=== PATIENT | female | born 1955 | race Caucasian/White ===

== ENCOUNTER 2017-07-20 06:00 | Inpatient (IN) | payer OTHER ==
[~2017-07-20 06:00] MED LIST: Acetaminophen 1,000 MG in Premix Bag 1 BAG IV SCH; Famotidine 20 MG/2 ML SDV IVPUSH SCH; Ketorolac 30 MG/ML SDV IVPUSH SCH; Scopolamine 1.5 MG Transdermal Patch TRDERM SCH
--- NOTE | 2017-07-20 07:10 | PCM.PREANE ---
Preanesthetic Assessment - Anesthesia/Transfusion/Family Hx Anesthesia History: Prior Anesthesia Reaction (PONV for days post-op) Other Type of Anesthesia Reaction Comment: states N&V for 2 days post-op Transfusion History: No Prior Transfusion(s) - Review of Systems General: No Symptoms Pulmonary: No Symptoms Cardiovascular: No Symptoms Gastrointestinal: No Symptoms Neurological: No Symptoms Other: Reports: None - Physical Assessment NPO Status Date: 07/19/17 NPO Status Time: 22:00 Height: 5 ft 2 in Weight: 77.111 kg ASA Class: 2 Mental Status: Alert & Oriented x3 Airway Class: Mallampati = 2 Dentition: Reports: Normal Dentition Thyro-Mental Finger Breadths: 3 Mouth Opening Finger Breadths: 3 ROM/Head Extension: Full Lungs: Clear to Auscultation, Normal Respiratory Effort Cardiovascular: Regular Rate, Regular Rhythm - Allergies Allergies/Adverse Reactions: Allergies Allergy/AdvReac Type Severity Reaction Status Date / Time adhesive tape Allergy Rash Verified 07/15/17 14:40 grass pollen Allergy sinus Verified 07/15/17 14:40 infection mold Allergy sinus Verified 07/15/17 14:40 infection dust Allergy sinus Uncoded 03/15/15 10:12 infection - Acknowledgements Anesthesia Type Planned: Spinal Pt an Appropriate Candidate for the Planned Anesthesia: Yes Alternatives and Risks of Anesthesia Discussed w Pt/Guardian: Yes Pt/Guardian Understands and Agrees with Anesthesia Plan: Yes PreAnesthesia Questionnaire HEENT History: Reports: Allergic Rhinitis, Other (See Below) Other HEENT History: wears glasses, has partial denture (will leave at home) Cardiovascular History: Reports: High Cholesterol, Hypertension, Other (See Below) Other Cardiovascular History: "leaky valve", does not limit daily activity Respiratory History: Reports: None Gastrointestinal History: Reports: GERD, Hemorrhoids Other Gastrointestinal History: occasional heartburn Genitourinary History: Reports: UTI, Recurrent Other Genitourinary History: hx of interstitial cystitis Musculoskeletal History: Reports: Arthritis, Fracture, Other (See Below) Other Musculoskeletal History: hx of fx right shoulder, hx of osteopenia Neurological History: Reports: None Psychiatric History: Reports: None Endocrine/Metabolic History: Reports: Obesity/BMI 30+ Hematologic History: Reports: None Immunologic History: Reports: None Oncologic (Cancer) History: Reports: None Dermatologic History: Reports: None - Infectious Disease History Infectious Disease History: Reports: Chicken Pox, Measles, Mumps, Rubella - Past Surgical History Head Surgeries/Procedures: Reports: None HEENT Surgical History: Reports: Oral Surgery Other HEENT Surgeries/Procedures: wisdom teeth GI Surgical History: Reports: Other (See Below) Other GI Surgeries/Procedures: hemorrhoidectomy Female Surgical History: Reports: Hysterectomy Musculoskeletal Surgical History: Reports: Arthroscopic Knee, Knee Replacement - SUBSTANCE USE Smoking Status *Q: Never Smoker Tobacco Use Within Last Twelve Months: No Second Hand Smoke Exposure: No Days Per Week of Alcohol Use: 0 Recreational Drug Use History: No - HOME MEDS Home Medications: Home Meds Calcium Carbonate [Calcium] 600 mg PO BID 03/15/15 [History] Cholecalciferol (Vitamin D3) [Vitamin D] 5,000 units PO DAILY 03/15/15 [History] Rosuvastatin [Crestor] 20 mg PO DAILY 03/15/15 [History] amLODIPine [Norvasc] 5 mg PO DAILY 03/15/15 [History] Estrogens, Conjugated [Premarin Vaginal Crm] 1 applic VAG ASDIRECTED PRN [History] Fexofenadine [Dior] 30 mg PO DAILY 07/15/17 [History] Fluticasone Furoate [Flonase Sensimist] 2 spray NASBOTH DAILY 07/15/17 [History] Omeprazole 20 mg PO DAILY PRN 07/15/17 [History] Zolpidem [Ambien] 2.5 mg PO BEDTIME PRN 07/15/17 [History] - CURRENT (IN HOUSE) MEDS Current Meds: Current Medications Famotidine (Pepcid) 40 mg IVPUSH ONARRIVE [facility] Acetaminophen 1,000 mg/ Premix 100 mls @ 400 mls/hr IV ONARRIVE [facility] Cefazolin Sodium/Dextrose 1 gm (/ Premix) 50 mls @ 100 mls/hr IV ONCALL [facility] Ropivacaine 49.25 ml/Ketorolac Tromethamine 30 mg/Epinephrine HCl 0.5 mg/ Clonidine HCl 80 mcg/ Sodium Chloride 100 mls @ 50 mls/sec INJECT ASDIRECTED [facility] Lactated Ringer's (Ringers, Lactated) 1,000 mls @ 100 mls/hr IV ASDIRECTED [facility] Tranexamic Acid 4,000 mg/ (Sodium Chloride) 140 mls @ 600 mls/hr IV ASDIRECTED [facility] Ketorolac Tromethamine (Toradol) 30 mg IVPUSH ONARRIVE [facility] Scopolamine (Transderm-Scop) 1.5 mg TRDERM ONARRIVE [facility]
[2017-07-20] MEDS: Lactated Ringers 1,000 ML IV SCH ×2 (07:20→16:51)
[2017-07-20] MEDS ORDERED: Lidocaine 2% 5 ML SDV ONE (07:29)
[2017-07-20] MEDS ORDERED: Midazolam 1 MG/ML 2 ML SDV ONE (07:29)
[2017-07-20] MEDS ORDERED: Propofol 200 MG/20 ML SDV ONE ×2 (07:29→09:00)
[2017-07-20] MEDS ORDERED: ePHEDrine 50 MG/ML SDV ONE (07:30)
[2017-07-20] MEDS ORDERED: Ondansetron 4 MG/2 ML SDV ONE (07:30)
[2017-07-20] MEDS ORDERED: Dexamethasone 4 MG/ML 5 ML MDV ONE (07:43)
[2017-07-20] MEDS ORDERED: Tranexamic Acid 4,000 MG in Sodium Chloride 0.9% 100 ML IV SCH (08:00)
[2017-07-20] MEDS ORDERED: Ropivacaine 49.25 ML, Ketorolac 30 MG, EPINEPHrine 0.5 MG, cloNIDine 80 MCG in Sodium C... INJECT SCH (08:00)
[2017-07-20] MEDS ORDERED: ceFAZolin 1 GM in Premix Bag 1 BAG IV SCH (08:00)
[2017-07-20] MEDS ORDERED: fentaNYL 100 MCG/2 ML SDV IVPUSH PRN (08:58)
[2017-07-20] MEDS ORDERED: diphenhydrAMINE 25 MG Cap PO PRN (09:33)
[2017-07-20] MEDS ORDERED: Bisacodyl 10 MG Supp RECTAL PRN (09:33)
[2017-07-20] MEDS ORDERED: HYDROmorphone/Normal Saline 6 MG/30 ML PCA Vial IV PRN (09:33)
[2017-07-20] MEDS ORDERED: Ondansetron 4 MG/2 ML SDV IV PRN (09:33)
[2017-07-20] MEDS ORDERED: Aluminum Hydroxide/Magnesium Hydroxide/Simethicone Susp 30 ML Cup PO PRN (09:33)
[2017-07-20] MEDS ORDERED: Omeprazole 20 MG Cap.CR PO PRN (09:36)
--- NOTE | 2017-07-20 09:36 | PCM.OPNOTE ---
- General Post-Op/Procedure Note Date of Surgery/Procedure: 07/20/17 Operative Procedure(s): L TKA Post-Op Diagnosis: DJD L knee Anesthesia Technique: Moderate Sedation, Spinal Primary Surgeon: Brittni Cavanaugh Fire Patroller: Beatriz Andrea in mLs: 50 Condition: Good Free Text/Narrative:: tt=31 min #[id number]
--- NOTE | 2017-07-20 10:29 | PCM.POSTAN ---
POST ANESTHESIA ASSESSMENT - MENTAL STATUS Mental Status: Alert, Oriented - RESPIRATORY Respiratory Status: Respiratory Rate WNL, Airway Patent, O2 Saturation Stable - CARDIOVASCULAR CV Status: Pulse Rate WNL, Blood Pressure Stable - GASTROINTESTINAL GI Status: No Symptoms - POST OP HYDRATION Hydration Status: Adequate & Stable
[2017-07-20] MEDS: Ketorolac 30 MG/ML SDV IVPUSH SCH ×2 (12:54→18:35)
--- NOTE | 2017-07-20 13:37 | CR ---
EXAMINATION: Left knee HISTORY: Arthroplasty COMPARISON: 04/01/2017 TECHNIQUE: 2 views FINDINGS/IMPRESSION: Right total knee hardware is demonstrated in good position and alignment. Postop erative soft tissue changes noted.
--- NOTE | 2017-07-20 13:41 | OR ---
SURGEON: Brittni Cavanaugh MD DATE OF PROCEDURE: 07/20/2017 PREOPERATIVE DIAGNOSIS: Degenerative joint disease, left knee, tricompartmental. POSTOPERATIVE DIAGNOSIS: Degenerative joint disease, left knee, tricompartmental. PROCEDURE: Left total knee arthroplasty using patient specific instrumentation. BARREL PAINTER: Beatriz Andrea PA-C ANESTHESIA: Spinal with sedation. ESTIMATED BLOOD LOSS: 50 mL. TOURNIQUET TIME: 31 minutes. COMPLICATIONS: None. DVT PROPHYLAXIS: PAS boot and JOSUE hose to the nonoperative leg. IMPLANTS USED: Hubert Persona femoral component size 6 narrow (LPS), tibial component size E, 12 mm all-polyethylene articular surface, and 35 mm all-polyethylene patella. INTRAOPERATIVE FINDINGS: Showed evidence of tricompartmental grade 4 chondromalacia. Osteophyte formation was also noted. No significant synovitis was found. BRIEF HISTORY: The patient is a 62-year-old female who has had complaint of progressive left knee pain. She was found to have degenerative changes on her x-rays. She had failed conservative treatment. She does have a history of a previous right total knee arthroplasty and has done well. Due to her lack of response to conservative treatment, I did recommend surgical intervention. The risks and goals of procedure were discussed with the patient and were documented preoperatively. She agreed to proceed. DESCRIPTION OF PROCEDURE: The patient was properly identified and brought to the operating room. The patient was then transferred from the operating room cart and placed on the operating table in a supine position. Anesthesia was administered by the anesthesia staff. After adequate anesthesia was obtained, a well-padded tourniquet was applied to the surgical lower extremity. Conde catheter was placed. The lower extremity was then prepped in standard fashion using ChloraPrep solution. It was then sterilely draped. A time-out was performed to ensure correct site and procedure. Preoperative antibiotics were given along with one gram of tranexamic acid IV. The surgical site had been marked preoperatively. An Esmarch was used to exsanguinate the right lower extremity and the tourniquet was inflated. An incision was made over the anterior aspect of the knee. The subcutaneous tissues were dissected down to the level of the fascia. A medial parapatellar approach to the knee was made. A portion of the infrapatellar fat pad was then excised. The distal femur was then exposed. The femoral patient-specific cutting guide was then placed. Pins were also placed. The distal femoral cutting block was placed and the distal femoral cut was made. Instrumentation was then removed. Both Whitesides' line and the epicondylar axis were then marked with electrocautery. The 4-in-1 cutting block was placed. This was placed in a slightly externally rotated position, which corresponded well with the previously drawn lines. The cutting guide was then pinned into position. An Mau wing guide was used to check the depth of resection of our anterior condylar cut and it was felt that no notching would occur. The anterior condylar cut was then made followed by the posterior condylar cut. Both the posterior chamfer and anterior chamfer cuts were then made. The cutting block was then removed along with the excess bony remnants. We then turned our attention to the tibia. The anterior cruciate ligament and posterior cruciate ligament were released and a posterior cruciate ligament retractor was placed to allow the tibia to be pulled anteriorly. The tibial patient-specific guide was then placed on the proximal tibia. This fit anatomically. The pins were then placed. The proximal tibia cutting guide was then placed and screwed into position. The proximal tibial resection was then made with care being taken to protect the patellar tendon. The bony resection was then removed. The remainder of the medial and lateral meniscus were then excised. Care was taken to protect the popliteus tendon. The tibia was then sized to the appropriate size. The distal femur was then elevated. The posterior capsule was stripped off the distal femur both medially and laterally. The posterior capsule along with the medial and lateral gutters were then injected with a standard mixture consisting of clonidine, epinephrine, Toradol, and Ropivacaine, unless any allergies were found preoperatively. The femoral component was then placed onto the distal femur in a slightly lateral position. This fit the femur well. A box cut was then made without difficulty. This was then removed. The tibial trial along with the polyethylene liner was then placed. The knee came easily into full extension and was stable to varus and valgus stressing both in full extension and flexion. Any additional releases were performed at this time. We then returned our attention to the patella. The patella was everted and towel clamps were used to hold the patella in position. It was resected to a 15 millimeter thickness. It was then sized to the appropriate size. It was prepared in the usual fashion after placing the predetermined size clamps. This was placed in a slightly superior and medial position. The clamp was then removed. The patellar trial button was placed. The knee was taken through a range of motion using the no-touch technique. The patella tracked centrally. A drop anjelica was then placed to check alignment. All instruments were then removed from the knee. The tibial sizer was then placed on the tibia. The tibia was prepared in the usual fashion using the reamer and broach. This was then removed. All bony surfaces were copiously irrigated with Pulsavac solution. They were then suctioned dry. Cement was prepared on the back table in the usual manner. Once it was prepared, the bone ends were again suctioned dry. The tibia was cemented into place first. This was malleted into position. Excess cement was then cleared. The femur was then placed in a similar manner. We placed the polyethylene trial into place and the knee was brought into full extension. An axial load was placed while keeping the knee in full extension. The patella button was also cemented into position and the clamp was used to hold this in place as the cement was allowed to cure. The wound was again copiously irrigated with saline solution using a Pulsavac internal grinding machine operator. Following this 1 g of tranexamic acid was applied to the wound topically. After we had adequate curing of the cement, the knee was again taken through a range of motion. The size of the polyethylene was then determined. The polyethylene trial was then removed. The tibial tray was suctioned to make sure there was no remaining soft tissue or cement. Excess cement was cleared from around the edges of the prosthesis as well. The tourniquet was then deflated. We were able to observe for any excess bleeding and none was noted. Electrocautery was used to maintain hemostasis. An additional gram of tranexamic acid was given IV. The retractors were again placed and the predetermined polyethylene was then placed. This was locked into position without difficulty. The knee was again taken through a range of motion with no change from the prior exam. The fascial layer was closed with Number One Vicryl. The subcutaneous tissues were closed with 2-0 Vicryl. The skin was closed with rolando. Xeroform gauze was placed over the wound and a bulky dressing was applied. The patient was then awakened from anesthesia and transferred back to the operating room cart. They were brought to the recovery room in stable condition. All needle and sponge counts were correct. TANNA / ABDIFATAH /[id number]
[2017-07-20] MEDS: Acetaminophen/HYDROcodone 325-5 MG Tab PO PRN ×3 (14:24→20:02)
[2017-07-20] MEDS: ceFAZolin 1 GM in Premix Bag 1 BAG IV SCH (16:03)
[2017-07-20] MEDS: Docusate Sodium 100 MG Cap PO SCH (20:04)
[2017-07-21] MEDS: Ketorolac 30 MG/ML SDV IVPUSH SCH (00:30)
[2017-07-21] MEDS: ceFAZolin 1 GM in Premix Bag 1 BAG IV SCH (00:35)
[2017-07-21] MEDS: Acetaminophen/HYDROcodone 325-5 MG Tab PO PRN ×3 (00:41→12:31)
[2017-07-21] MEDS: Lactated Ringers 1,000 ML IV SCH (03:28)
--- NOTE | 2017-07-21 07:55 | PCM48HPAN ---
Post Anesthesia Note - EVALUATION WITHIN 48HRS OF ANESTHETIC Vital Signs in Normal Range: Yes Patient Participated in Evaluation: Yes Respiratory Function Stable: Yes Airway Patent: Yes Cardiovascular Function Stable: Yes Hydration Status Stable: Yes Pain Control Satisfactory: Yes Nausea and Vomiting Control Satisfactory: Yes Mental Status Recovered: Yes Resp Rate: 18
[2017-07-21] MEDS ORDERED: HYDROmorphone 2 MG/ML SDV IVPUSH PRN (08:00)
[2017-07-21] MEDS: Docusate Sodium 100 MG Cap PO SCH (08:25)
[2017-07-21] MEDS ORDERED: Rosuvastatin 10 MG Tab PO SCH ×2 (09:00→21:00)
[2017-07-21] MEDS ORDERED: Apixaban 2.5 MG Tab PO SCH (09:00)
[2017-07-21] MEDS ORDERED: amLODIPine 5 MG Tab PO SCH (09:00)
[2017-07-21] MEDS ORDERED: Aspirin 325 MG Tab PO SCH (09:00)
[2017-07-21] MEDS ORDERED: Fluticasone Propionate Nasal Spray 16 GM Bottle NASBOTH SCH (09:00)
[2017-07-21] MEDS ORDERED: Celecoxib 100 MG Cap PO SCH (09:00)
[2017-07-21] MEDS ORDERED: Sodium Chloride 0.9% 2.5 ML Syringe FLUSH PRN (09:13)
[2017-07-21] MEDS ORDERED: Sodium Chloride 0.9% 10 ML Syringe FLUSH PRN (09:13)
--- NOTE | 2017-07-21 09:13 | PCM.SURGPN ---
- General Info Date of Service: 07/21/17 Date of Surgery/Procedure: 07/20/17 POD#: 1 Functional Status: Reports: Pain Controlled - Review of Systems General: Reports: No Symptoms Pulmonary: Reports: No Symptoms. Denies: Shortness of Breath Cardiovascular: Reports: No Symptoms. Denies: Chest Pain, Palpitations Gastrointestinal: Reports: No Symptoms. Denies: Nausea, Vomiting Systems Review Comment:: pt up to chair for breakfast no specific concerns today tolerating PO intake well no nausea tolerating Dupont 5/325 well planning for home care after d/ch to home - Patient Data Vitals - Most Recent: Last Vital Signs Temp 98.1 F 07/21/17 08:52 Pulse 89 07/21/17 08:52 Resp 16 07/21/17 08:52 BP 98/59 L 07/21/17 08:52 Pulse Ox 96 07/21/17 08:52 Weight - Most Recent: 77.111 kg I&O - Last 24 Hours: Intake & Output 07/20/17 07/21/17 07/21/17 22:59 06:59 14:59 Intake Total 1000 450 Output Total 600 650 Balance 400 -200 Lab Results Last 24 Hrs: Laboratory Results - last 24 hr 07/21/17 Range/Units 05:45 Hgb 11.6 L (12.0-16.0) g/dL Hct 33.9 L (36.0-46.0) % Med Orders - Current: Current Medications Hydrocodone Bitart/Acetaminophen (Dupont 325-5 Mg) 1 - 2 tab PO Q4H PRN PRN Reason: Pain Last Admin: 07/21/17 06:02 Dose: 2 tab Al Hydroxide/Mg Hydroxide (Mag-Al Plus) 30 ml PO Q4H PRN PRN Reason: indigestion Amlodipine Besylate (Norvasc) 5 mg PO DAILY [facility] Last Admin: 07/21/17 08:33 Dose: Not Given Apixaban (Eliquis) 2.5 mg PO BID [facility] Last Admin: 07/21/17 08:23 Dose: 2.5 mg Bisacodyl (Dulcolax) 10 mg RECTAL DAILY PRN PRN Reason: Constipation Celecoxib (Celebrex) 200 mg PO BID [facility] Last Admin: 07/21/17 08:26 Dose: 200 mg Diphenhydramine HCl (Benadryl) 25 - 50 mg PO Q6H PRN PRN Reason: Itching Docusate Sodium (Colace) 100 mg PO BID [facility] Last Admin: 07/21/17 08:25 Dose: 100 mg Fexofenadine HCl (Dior) 30 mg PO DAILY [facility] Last Admin: 07/21/17 08:24 Dose: 30 mg Fluticasone Propionate (Flonase) 0 gm NASBOTH DAILY [facility] Last Admin: 07/21/17 08:27 Dose: 2 spray Hydromorphone HCl (Dilaudid) 0.5 - 1 mg IVPUSH Q3H PRN PRN Reason: Pain Lactated Ringer's (Ringers, Lactated) 1,000 mls @ 100 mls/hr IV ASDIRECTED [facility] Last Admin: 07/21/17 03:28 Dose: 100 mls/hr Omeprazole (Omeprazole) 20 mg PO DAILY PRN PRN Reason: Heartburn Ondansetron HCl (Zofran) 4 mg IV Q6HR PRN PRN Reason: NAUSEA/VOMITING Rosuvastatin Calcium (Crestor) 20 mg PO BEDTIME [facility] Scopolamine (Transderm-Scop) 1.5 mg TRDERM ONARRIVE [facility] Last Admin: 07/20/17 07:21 Dose: 1.5 mg Discontinued Medications Dexamethasone (Dexamethasone) Confirm Administered Dose 20 mg .ROUTE .STK-MED ONE Stop: 07/20/17 07:44 Ephedrine Sulfate (Ephedrine Sulfate) Confirm Administered Dose 50 mg .ROUTE .STK-MED ONE Stop: 07/20/17 07:31 Famotidine (Pepcid) 40 mg IVPUSH ONARRIVE [facility] Last Admin: 07/20/17 07:20 Dose: 40 mg Fentanyl (Sublimaze) 50 mcg IVPUSH Q5M PRN PRN Reason: Pain (severe 7-10) Stop: 07/21/17 08:58 Hydromorphone HCl (Dilaudid [employer] Enterprise [employer] 6 Mg In Ns 30 Ml) 6 mg IV ASDIRECTED PRN; Protocol PRN Reason: Pain Stop: 07/21/17 08:00 Last Admin: 07/20/17 11:22 Dose: 6 mg Acetaminophen 1,000 mg/ Premix 100 mls @ 400 mls/hr IV ONARRIVE [facility] Last Admin: 07/20/17 07:00 Dose: 400 mls/hr Cefazolin Sodium/Dextrose 1 gm (/ Premix) 50 mls @ 100 mls/hr IV ONCALL [facility] Ropivacaine 49.25 ml/Ketorolac Tromethamine 30 mg/Epinephrine HCl 0.5 mg/ Clonidine HCl 80 mcg/ Sodium Chloride 100 mls @ 50 mls/sec INJECT ASDIRECTED [facility] Tranexamic Acid 4,000 mg/ (Sodium Chloride) 140 mls @ 600 mls/hr IV ASDIRECTED [facility] Cefazolin Sodium/Dextrose (Ancef) Confirm Administered Dose 50 mls @ as directed .ROUTE .STK-MED ONE Stop: 07/20/17 07:30 Cefazolin Sodium/Dextrose 1 gm (/ Premix) 50 mls @ 100 mls/hr IV Q8H [facility] Stop: 07/21/17 00:29 Last Admin: 07/21/17 00:35 Dose: 100 mls/hr Ketorolac Tromethamine (Toradol) 30 mg IVPUSH ONARRIVE [facility] Last Admin: 07/20/17 07:20 Dose: 30 mg Ketorolac Tromethamine (Toradol) 30 mg IVPUSH Q6H [facility] Stop: 07/21/17 05:00 Last Admin: 07/21/17 00:30 Dose: 30 mg Lidocaine (Xylocaine-Mpf 2%) Confirm Administered Dose 10 ml .ROUTE .STK-MED ONE Stop: 07/20/17 07:30 Midazolam HCl (Versed 1 Mg/Ml) Confirm Administered Dose 2 mg .ROUTE .STK-MED ONE Stop: 07/20/17 07:30 Ondansetron HCl (Zofran) Confirm Administered Dose 8 mg .ROUTE .STK-MED ONE Stop: 07/20/17 07:31 Propofol (Diprivan 20 Ml) Confirm Administered Dose 400 mg .ROUTE .STK-MED ONE Stop: 07/20/17 07:30 Propofol (Diprivan 20 Ml) Confirm Administered Dose 200 mg .ROUTE .STK-MED ONE Stop: 07/20/17 09:01 Tranexamic Acid (Cyklokapron) Confirm Administered Dose 4,000 mg .ROUTE .STK- MED ONE Stop: 07/20/17 07:25 - Exam Wound/Incisions: Healing Well. No: Drainage, Erythema General: Alert, Oriented Cardiovascular: Regular Rate, Regular Rhythm Extremities: No Pedal Edema, Other (exam LLE incision clean/dry/rolando intact, no drainage/erythema, at/ehl/gastroc 5/5, dp 2+, sensation intact distally) Physical Findings Comment:: vss, afeb uo 3475mL hgb 11.6 - Problem List Review Problem List Initiated/Reviewed/Updated: Yes - My Orders Last 24 Hours: Active Orders 24 hr Category Date Time Status Activity as Tolerated [RC] .Routine Care 07/20/17 09:33 Active Dressing Change [Wound Care] [RC] Q12H Care 07/20/17 09:33 Active Intake and Output [RC] Q12H Care 07/20/17 09:32 Active Neurovascular Check [RC] Q2HR Care 07/20/17 09:32 Active Notify Provider Vital Signs [RC] ASDIRECTED Care 07/20/17 09:33 Active RT Incentive Spirometry [RC] ASDIRECTED Care 07/20/17 09:32 Active Vital Signs [RC] Q4H Care 07/20/17 09:32 Active PT Evaluation and Treatment [CONS] Routine Cons 07/20/17 09:32 Active HEMOGLOBIN/HEMATOCRIT,HH [HEME] DAILY Lab 07/22/17 06:00 Ordered HEMOGLOBIN/HEMATOCRIT,HH [HEME] DAILY Lab 07/23/17 06:00 Ordered Acetaminophen/HYDROcodone [Dupont 325-5 MG] Med 07/20/17 09:33 Active 1 - 2 tab PO Q4H PRN Alum Hydrox/Mag Hydrox/Simeth [Mag-Al Plus] Med 07/20/17 09:33 Active 30 ml PO Q4H PRN Apixaban [Eliquis] Med 07/21/17 09:00 Active 2.5 mg PO BID Bisacodyl [Dulcolax] Med 07/20/17 09:33 Active 10 mg RECTAL DAILY PRN Celecoxib [CeleBREX] Med 07/21/17 09:00 Active 200 mg PO BID Docusate Sodium [Colace] Med 07/20/17 21:00 Active 100 mg PO BID Fexofenadine [Dior] Med 07/21/17 09:00 Active 30 mg PO DAILY Fluticasone Propionate [Flonase] Med 07/21/17 09:00 Active 0 gm NASBOTH DAILY HYDROmorphone [Dilaudid] Med 07/21/17 08:00 Active 0.5 - 1 mg IVPUSH Q3H PRN Omeprazole Med 07/20/17 09:36 Active 20 mg PO DAILY PRN Ondansetron [Zofran] Med 07/20/17 09:33 Active 4 mg IV Q6HR PRN Rosuvastatin [Crestor] Med 07/21/17 21:00 Active 20 mg PO BEDTIME amLODIPine [Norvasc] Med 07/21/17 09:00 Active 5 mg PO DAILY diphenhydrAMINE [Benadryl] Med 07/20/17 09:33 Active 25 - 50 mg PO Q6H PRN Ice Therapy [OM.PC] Routine Oth 07/20/17 09:32 Ordered Medication Orders Hydrocodone Bitart/Acetaminophen (Dupont 325-5 Mg) 1 - 2 tab PO Q4H PRN PRN Reason: Pain Last Admin: 07/21/17 06:02 Dose: 2 tab Admin: 07/21/17 00:41 Dose: 2 tab Admin: 07/20/17 20:02 Dose: 2 tab Admin: 07/20/17 16:02 Dose: 1 tab Admin: 07/20/17 14:24 Dose: 1 tab Al Hydroxide/Mg Hydroxide (Mag-Al Plus) 30 ml PO Q4H PRN PRN Reason: indigestion Amlodipine Besylate (Norvasc) 5 mg PO DAILY [facility] Last Admin: 07/21/17 08:33 Dose: Apixaban (Eliquis) 2.5 mg PO BID [facility] Last Admin: 07/21/17 08:23 Dose: 2.5 mg Bisacodyl (Dulcolax) 10 mg RECTAL DAILY PRN PRN Reason: Constipation Celecoxib (Celebrex) 200 mg PO BID [facility] Last Admin: 07/21/17 08:26 Dose: 200 mg Diphenhydramine HCl (Benadryl) 25 - 50 mg PO Q6H PRN PRN Reason: Itching Docusate Sodium (Colace) 100 mg PO BID [facility] Last Admin: 07/21/17 08:25 Dose: 100 mg Admin: 07/20/17 20:04 Dose: 100 mg Fexofenadine HCl (Dior) 30 mg PO DAILY [facility] Last Admin: 07/21/17 08:24 Dose: 30 mg Fluticasone Propionate (Flonase) 0 gm NASBOTH DAILY [facility] Last Admin: 07/21/17 08:27 Dose: 2 spray Hydromorphone HCl (Dilaudid) 0.5 - 1 mg IVPUSH Q3H PRN PRN Reason: Pain Lactated Ringer's (Ringers, Lactated) 1,000 mls @ 100 mls/hr IV ASDIRECTED [facility] Last Admin: 07/21/17 03:28 Dose: 100 mls/hr Infusion: 07/21/17 02:51 Dose: 100 mls/hr Admin: 07/20/17 16:51 Dose: 100 mls/hr Infusion: 07/20/17 16:51 Dose: 100 mls/hr Admin: 07/20/17 07:20 Dose: 100 mls/hr Omeprazole (Omeprazole) 20 mg PO DAILY PRN PRN Reason: Heartburn Ondansetron HCl (Zofran) 4 mg IV Q6HR PRN PRN Reason: NAUSEA/VOMITING Rosuvastatin Calcium (Crestor) 20 mg PO BEDTIME [facility] Scopolamine (Transderm-Scop) 1.5 mg TRDERM ONARRIVE [facility] Last Admin: 07/20/17 07:21 Dose: 1.5 mg - Assessment Assessment (Free Text/Narrative):: POD#1 L TKA acute posthemorrhagic anemia - Plan Plan (Free Text/Narrative):: DC IV fluids - saline lock IV DC uriarte DC [employer] - dilaudid IV prn breakthrough pain continue norco 5/325 eliquis 2.5mg PO BID as DVT prophylaxis PT today dressing changed pt has wheeled walker or script has been written if pt does well with PT, pain is controlled, may d/ch to home this afternoon d/ch medications written will require home health for PT/wound care based on inability to drive s/p L TKA /narcotic pain medications and no family available for transport to physical therapy. estimated length of need is 2-4 weeks for therapy.
[2017-07-21 15:47] VITALS: BP 109/73
--- NOTE | 2017-07-21 16:20 | PCM.SN ---
- Free Text/Narrative Note: d/ch summary #[id number]
--- NOTE | 2017-07-22 12:58 | DISCH ---
DATE OF DISCHARGE: 07/21/2017 PRIMARY CARE PHYSICIAN: Brian Rose M.D. ADMITTING DIAGNOSIS: Degenerative joint disease, left knee, tricompartmental. OTHER MEDICAL DIAGNOSES: 1. Hypertension. 2. Hyperlipidemia. 3. Allergic rhinitis. 4. Osteopenia. DISCHARGE DIAGNOSES: 1. Degenerative joint disease, left knee, tricompartmental. 2. Hypertension. 3. Hyperlipidemia. 4. Allergic rhinitis. 5. Osteopenia. 6. Acute post hemorrhagic anemia. BRIEF HISTORY: Alice is a 62-year-old female who has had progressive complaints of left knee pain. She has tried and failed conservative treatment. She has previously undergone a right total knee arthroplasty and has been doing well with that. At that time, surgical treatment was recommended for the left knee. She underwent a left total knee arthroplasty using patient-specific instrumentation on July 15, 2017, done by Dr. Brittni Cavanaugh. This was done under spinal anesthesia with sedation. ESTIMATED BLOOD LOSS: 50 mL. TOURNIQUET TIME: 31 minutes. COMPLICATIONS: There were no known complications. Upon completion of the procedure, she was transferred to the PACU and subsequently to [facility] for postoperative care. HOSPITAL COURSE: Postoperatively, the patient did well. She received 2 doses of Ancef postoperatively for a total of 24 hours of antibiotic coverage. Physical therapy followed her through her hospital stay. Her pain was well controlled with combination of oral and IV pain medications. Her vital signs have been stable. She has been afebrile. Her hemoglobin in the morning of July 21 was 11.6. At this time, the patient is doing well. Her pain is well controlled with oral pain medications only. She progressed well with physical therapy. She feels comfortable with discharge to home. DISCHARGE MEDICATIONS: 1. Dexter 5/325. 2. Celebrex 200 mg. 3. Colace 100 mg. 4. Eliquis 2.5 mg. DISCHARGE INSTRUCTIONS: 1. Follow up in clinic in 10-14 days from the date of procedure. This appointment has been made for the patient. 2. She may not drive while taking narcotic pain medications. 3. She is to change her dressing over the weekend at home. An Aquacel dressing has been provided to her. 4. Polar Care to the left knee as needed. 5. JOSUE hose, on in the morning, off in the evening. For complete medication reconciliation and discharge instructions, please refer back to the patient's EHR. Should she have questions or concerns prior to followup, she has been advised to return to clinic or call. CLAUDIA GARDINER /[id number]
== END 2017-07-21 18:12 | disposition home or self-care (01) | DRG 470 ==
LOC: MW.SDS 06:00 → MW.MS 06:01 → MW.SDS 06:35 → MW.MS 11:09 → MW.SDS 11:09
PROVIDERS: ADMIT Orthopaedic Surgery; ATTEND Orthopaedic Surgery
PROC: 0SRD0J9 Replacement of Left Knee Joint with Synthetic Substitute, Cemented, Open Approach (ICD-10-PCS; principal; 2017-07-20)
DX: M17.12 Unilateral primary osteoarthritis, left knee (principal); M94.262 Chondromalacia, left knee; M25.762 Osteophyte, left knee
CPT/HCPCS: 36415; 73560-26-LT; 73560-LT; 85014; 85018; 86850; 86900; 86901; 97161-GP; 97530-GP; A9270-GY; C1713; C1776; J0171; J0690; J0735; J1100; J1170; J1885; J2250; J2405; J2704; J2795; J7050; J7120

== ENCOUNTER 2017-07-24 19:31 | Emergency (ER) | payer OTHER ==
--- NOTE | 2017-07-24 19:42 | EDM.PDOC ---
ED HPI GENERAL MEDICAL PROBLEM - General Chief Complaint: Lower Extremity Injury/Pain Stated Complaint: LEFT KNEE PAIN Time Seen by Provider: 07/24/17 19:42 Source of Information: Reports: Patient - History of Present Illness INITIAL COMMENTS - FREE TEXT/NARRATIVE: HISTORY AND PHYSICAL: History of present illness: [Patient is post left total knee replacement performed on 611 by Brittni Norton She presents to emergency room with left knee swelling mild redness no fever nausea vomiting chills sweats for range of motion of the knee ] Patient's bandaging was replaced by home health today, she has known adhesive allergies she has some redness surrounding the bandage consistent with sensitivity to multiple adhesives, There is mild swelling about the knee consistent with recent surgery again full range of motion hip and ankle and affected entirely limb neurovascularly intact she does have some redness and warmth on the medial aspect of her left knee no fever nausea vomiting chills sweats She has been taking her medication as directed but is concerned that she'll run out prior to Thursday and Dr. Cabezas return she is also having some constipation with medication would did discuss [id number] symptomatic therapies for bowel care Review of systems: As per history of present illness and below otherwise all systems reviewed and negative. Past medical history: As per history of present illness and as reviewed below otherwise noncontributory. Surgical history: As per history of present illness and as reviewed below otherwise noncontributory. Social history: No reported history of drug or alcohol abuse. Family history: As per history of present illness and as reviewed below otherwise noncontributory. Physical exam: HEENT: Atraumatic, normocephalic, pupils reactive, negative for conjunctival pallor or scleral icterus, mucous membranes moist, throat clear, neck supple, nontender, trachea midline. Lungs: Clear to auscultation, breath sounds equal bilaterally, chest nontender. Heart: S1S2, regular, negative for clicks, rubs, or JVD. Abdomen: Soft, nondistended, nontender. Negative for masses or hepatosplenomegaly. Negative for costovertebral tenderness. Pelvis: Stable nontender. Genitourinary: Deferred. Rectal: Deferred. Extremities: Atraumatic, negative for cords or calf pain. Neurovascular unremarkable. Left knee replacement noted as per history of present illness Left lower extremity total knee replacement noted bandaging in place scant discharge hip and ankle and affected mild redness no tenderness over the medial aspect of the knee there is full range of motion of the knee Neuro: Awake, alert, oriented. Cranial nerves II through XII unremarkable. Cerebellum unremarkable. Motor and sensory unremarkable throughout. Exam nonfocal. Diagnostics: [CBC CMP lactic whole blood, blood cultures] Therapeutics: [Dr. Cavanaugh is unavailable as she is out until 05/27 Keflex 500 by mouth twice a day #20 no refill Reglan Bowel care discussed Follow-up with Dr. Sorenson' office on Thursday A prescription for Anderson No. 30 is provided return if symptoms persist or worsen in the interim Impression: [Postoperative left knee replacement] Definitive disposition and diagnosis as appropriate pending reevaluation and review of above. Left Knee Pain Score (Numeric/FACES): 7 - Related Data Allergies Allergy/AdvReac Type Severity Reaction Status Date / Time adhesive tape Allergy Rash Verified 07/15/17 14:40 grass pollen Allergy sinus Verified 07/15/17 14:40 infection mold Allergy sinus Verified 07/15/17 14:40 infection dust Allergy sinus Uncoded 03/15/15 10:12 infection Home Meds: Home Meds Calcium Carbonate [Calcium] 600 mg PO BID 03/15/15 [History] Cholecalciferol (Vitamin D3) [Vitamin D] 5,000 units PO DAILY 03/15/15 [History] Rosuvastatin [Crestor] 20 mg PO DAILY 03/15/15 [History] amLODIPine [Norvasc] 5 mg PO DAILY 03/15/15 [History] Estrogens, Conjugated [Premarin Vaginal Crm] 1 applic VAG ASDIRECTED PRN [History] Fexofenadine [Dior] 30 mg PO DAILY 07/15/17 [History] Fluticasone Furoate [Flonase Sensimist] 2 spray NASBOTH DAILY 07/15/17 [History] Omeprazole 20 mg PO DAILY PRN 07/15/17 [History] Zolpidem [Ambien] 2.5 mg PO BEDTIME PRN 07/15/17 [History] Acetaminophen/HYDROcodone [Anderson 325-5 MG] 1 tab PO Q4H PRN #80 tablet 07/20/17 [Rx] Apixaban [Eliquis] 2.5 mg PO BID #28 tablet 07/20/17 [Rx] Celecoxib [CeleBREX] 200 mg PO DAILY #30 cap 07/20/17 [Rx] Docusate Sodium [Colace] 100 mg PO DAILY #60 cap 07/20/17 [Rx] Past Medical History HEENT History: Reports: Allergic Rhinitis, Other (See Below) Other HEENT History: wears glasses, has partial denture (will leave at home) Cardiovascular History: Reports: High Cholesterol, Hypertension, Other (See Below) Other Cardiovascular History: "leaky valve", does not limit daily activity Respiratory History: Reports: None Gastrointestinal History: Reports: GERD, Hemorrhoids Other Gastrointestinal History: occasional heartburn Genitourinary History: Reports: UTI, Recurrent Other Genitourinary History: hx of interstitial cystitis Musculoskeletal History: Reports: Arthritis, Fracture, Other (See Below) Other Musculoskeletal History: hx of fx right shoulder, hx of osteopenia Neurological History: Reports: None Psychiatric History: Reports: None Endocrine/Metabolic History: Reports: Obesity/BMI 30+ Hematologic History: Reports: None Immunologic History: Reports: None Oncologic (Cancer) History: Reports: None Dermatologic History: Reports: None - Infectious Disease History Infectious Disease History: Reports: Chicken Pox, Measles, Mumps, Rubella - Past Surgical History HEENT Surgical History: Reports: Oral Surgery Other HEENT Surgeries/Procedures: wisdom teeth GI Surgical History: Reports: Other (See Below) Other GI Surgeries/Procedures: hemorrhoidectomy Female Surgical History: Reports: Hysterectomy Musculoskeletal Surgical History: Reports: Arthroscopic Knee, Knee Replacement Social & Family History - Family History Cardiac: Reports: [place] OBGYN: Reports: Fibroids, Neurological: Reports: Parkinson's Hematologic: Reports: Anemia - Tobacco Use Smoking Status *Q: Never Smoker Review of Systems - Review of Systems Review Of Systems: See Below ED EXAM, GENERAL - Physical Exam Exam: See Below Course - Vital Signs Last Recorded V/S: Last Vital Signs Temp 98.5 F 07/24/17 19:35 Pulse 93 07/24/17 19:35 Resp 16 07/24/17 19:35 BP 129/82 07/24/17 19:35 Pulse Ox 95 07/24/17 19:35 - Orders/Labs/Meds Labs: Laboratory Tests 07/24/17 07/24/17 07/24/17 Range/Units 19:49 19:49 19:49 WBC 5.70 (4.0-11.0) K/uL RBC 3.81 L (4.30-5.90) M/uL Hgb 12.0 (12.0-16.0) g/dL Hct 36.0 (36.0-46.0) % MCV 94.5 (80.0-98.0) fL MCH 31.5 (27.0-32.0) pg MCHC 33.3 (31.0-37.0) g/dL RDW Std Deviation 45.4 (28.0-62.0) fl RDW Coeff of Vivek 13 (11.0-15.0) % Plt Count 259 (150-400) K/uL MPV 10.40 (7.40-12.00) fL Neut % (Auto) 58.8 (48.0-80.0) % Lymph % (Auto) 28.2 (16.0-40.0) % [place] % (Auto) 10.0 (0.0-15.0) % Eos % (Auto) 2.6 (0.0-7.0) % Baso % (Auto) 0.4 (0.0-1.5) % Neut # (Auto) 3.4 (1.4-5.7) K/uL Lymph # (Auto) 1.6 (0.6-2.4) K/uL [place] # (Auto) 0.6 (0.0-0.8) K/uL Eos # (Auto) 0.2 (0.0-0.7) K/uL Baso # (Auto) 0.0 (0.0-0.1) K/uL Nucleated RBC % 0.0 /100WBC Nucleated RBCs # 0 K/uL Lactate 1.4 (0.20-2.00) mmol/L Sodium 138 (136-145) mmol/L Potassium 3.4 L (3.5-5.1) mmol/L Chloride 101 (98-107) mmol/L Carbon Dioxide 30.6 (21.0-32.0) mmol/L BUN 13 (7.0-18.0) mg/dL Creatinine 0.8 (0.6-1.0) mg/dL Est Cr Clr Drug Dosing 56.19 mL/min Estimated GFR (MDRD) > 60.0 ml/min Glucose 157 H (74-106) mg/dL Calcium 8.9 (8.5-10.1) mg/dL Total Bilirubin 0.5 (0.2-1.0) mg/dL AST 30 (15-37) IU/L ALT 27 (14-63) IU/L Alkaline Phosphatase 55 (46-116) U/L Total Protein 6.8 (6.4-8.2) g/dL Albumin 3.3 L (3.4-5.0) g/dL Globulin 3.5 (2.0-3.5) g/dL Albumin/Globulin Ratio 0.9 L (1.3-2.8) Departure - Departure Time of Disposition: 20:23 Disposition: Home, Self-Care 01 Condition: Good Clinical Impression: Postop check - Discharge Information Referrals: Brian Rose MD [Primary Care Provider] - Forms: ED Department Discharge Additional Instructions: Medication as prescribed Bowel care as discussed Return if symptoms persist or worsen or fever nausea vomiting chills sweats should develop Follow-up with Dr. Sorenson office on Thursday [facility] [address], [address] [place] [address] my orthopedic The following information is given to patients seen in the emergency department who are being discharged to home. This information is to outline your options for follow-up care. We provide all patients seen in our emergency department with a follow-up referral. The need for follow-up, as well as the timing and circumstances, are variable depending upon the specifics of your emergency department visit. If you don't have a primary care physician on staff, we will provide you with a referral. We always advise you to contact your personal physician following an emergency department visit to inform them of the circumstance of the visit and for follow-up with them and/or the need for any referrals to a consulting specialist. The emergency department will also refer you to a specialist when appropriate. This referral assures that you have the opportunity for follow-up care with a specialist. All of these measure are taken in an effort to provide you with optimal care, which includes your follow-up. Under all circumstances we always encourage you to contact your private physician who remains a resource for coordinating your care. When calling for follow-up care, please make the office aware that this follow-up is from your recent emergency room visit. If for any reason you are refused follow-up, please contact the [facility] emergency department at and asked to speak to the emergency department charge nurse.
[2017-07-24 20:12] LABS: CHLORIDE,CL 101 mmol/L (98-107); SODIUM,NA 138 mmol/L (136-145)
[2017-07-24 20:41] VITALS: BP 133/92
== END 2017-07-24 20:50 | disposition home or self-care (01) ==
LOC: MW.ED 19:31
DX: Z47.1 Aftercare following joint replacement surgery (principal); I10 Essential (primary) hypertension; E78.00 Pure hypercholesterolemia, unspecified; K21.9 Gastro-esophageal reflux disease without esophagitis; Z79.899 Other long term (current) drug therapy; Z87.440 Personal history of urinary (tract) infections
CPT/HCPCS: 36415; 80053; 83605; 85025; 99283

== ENCOUNTER 2025-01-10 08:07 | Day surgery (SDC) | payer MEDICARE, BC ==
[~2025-01-10 08:07] MED LIST changes: -Acetaminophen 1,000 MG in Premix Bag 1 BAG IV SCH; -Famotidine 20 MG/2 ML SDV IVPUSH SCH; -Ketorolac 30 MG/ML SDV IVPUSH SCH; -Scopolamine 1.5 MG Transdermal Patch TRDERM SCH; +Sodium Chloride 0.9% 10 ML Syringe FLUSH PRN; +Sodium Chloride 0.9% 2.5 ML Syringe FLUSH PRN
[2025-01-10] MEDS: Lactated Ringers 1,000 ML IV SCH (08:36)
[2025-01-10] MEDS: Scopalamine 1mg/3day Transdermal Patch TRDERM PRN (08:46)
[2025-01-10] MEDS ORDERED: propofoL 500 MG/50 ML 50 ML ONE (09:04)
[2025-01-10] MEDS ORDERED: fentaNYL 100 MCG/2 ML SDV ONE (09:39)
[2025-01-10] MEDS ORDERED: Dexamethasone 4 MG/ML 5 ML MDV ONE (10:40)
[2025-01-10] MEDS ORDERED: Ondansetron 4 MG/2 ML SDV ONE (10:40)
[2025-01-10 11:10] VITALS: BP 117/72; PULSE 70
== END 2025-01-10 11:25 | disposition home or self-care (01) ==
LOC: MW.SDS 08:07
PROVIDERS: ATTEND Surgery
DX: Z12.11 Encounter for screening for malignant neoplasm of colon (principal); D12.3 Benign neoplasm of transverse colon; R19.5 Other fecal abnormalities; K57.30 Diverticulosis of large intestine without perforation or abscess without bleeding; K64.3 Fourth degree hemorrhoids; E78.00 Pure hypercholesterolemia, unspecified; I10 Essential (primary) hypertension; K21.9 Gastro-esophageal reflux disease without esophagitis; E66.9 Obesity, unspecified; Z68.34 Body mass index [BMI] 34.0-34.9, adult; Z91.048 Other nonmedicinal substance allergy status; Z88.8 Allergy status to other drugs, medicaments and biological substances; Z79.899 Other long term (current) drug therapy
CPT/HCPCS: 45380; 45381; 45385; A9270; J0690; J1100; J2003; J2405; J2704; J3010; J7120; 00811; 88305; 99100